=== PATIENT | female | born 1975 | race Caucasian/White ===

== ENCOUNTER → 2017-01-05 | Outpatient (CLI) | payer BC ==
[~2017-01-05] MED LIST: FERR325T51 PO; OMEG10007 PO
--- NOTE | 2017-01-05 12:58 | DIAGNOSTIC IMAGING REPORT ---
PELVIC ULTRASOUND CLINICAL HISTORY: Lower abdominal pain. COMPARISON STUDY: CT of the abdomen and pelvis September 18, 2014. TECHNIQUE: Transabdominal and transvaginal sonography of the pelvis was performed. FINDINGS: The uterus measures 8.3 x 5.4 x 6.8 cm. The endometrium measures 1.2 cm in thickness. Within the left aspect of the uterine fundus, there is a 2.4 x 1.9 x 2.3 cm hypoechoic lesion suggestive of a fibroid. The right ovary measures 3.2 x 4.4 x 3.3 cm and contains a 3.4 x 2.6 x 2.8 cm hypoechoic lesion with low level internal echoes. The left ovary measures 2.5 x 1.8 x 2.6 cm and contains several follicles. There is color flow within each ovary. IMPRESSION: 1. 2.4 cm left fundal mural fibroid. 2. 3.4 cm hypoechoic right ovarian lesion which could reflect a complex cyst such a hemorrhagic cyst. An endometrioma could appear similar. A follow-up pelvic ultrasound in 6 weeks is recommended. 3. No sonographic evidence of ovarian torsion. Electronically signed by: Nakul Lopez M.D. 01/05/2017 12:56 PM Dictated Date/Time: 01/05/2017 12:53 PM
== END | disposition home or self-care (01) ==
LOC: C.ULTR 12:00
PROVIDERS: ATTEND Student in an Organized Health Care Education/Training Program
DX: R10.30 Lower abdominal pain, unspecified (principal); D25.9 Leiomyoma of uterus, unspecified; N83.9 Noninflammatory disorder of ovary, fallopian tube and broad ligament, unspecified

== ENCOUNTER → 2017-02-22 | Outpatient (CLI) | payer BC ==
--- NOTE | 2017-02-22 12:00 | DIAGNOSTIC IMAGING REPORT ---
EXAMINATION: PELVIC ULTRASOUND CLINICAL HISTORY: OVARIAN CYST COMPARISON STUDY: 01/05/2017 FINDINGS: The uterus measured 8.7 cm. 2.3 cm uterine fibroid unchanged.. The endometrial stripe measured 9 mm unchanged. The right ovary measured 4.8 cm maximum dimension including a 4 x 3 cm complex right ovarian cyst versus endometrioma.. The left ovary measured maximum dimension 3.0 cm. Normal vascular flow. There is no ultrasonographic evidence of ovarian torsion. It should be noted that ovarian torsion can be present with normal Doppler ultrasonographic findings. There was no evidence of pathologic free pelvic fluid. IMPRESSION: 1. 4 x 3 cm progressively complex right ovarian cyst, hemorrhagic cyst, versus endometrioma. 2. Unchanging uterine fibroid. Electronically signed by: Scott Buchanan M.D. 02/22/2017 11:59 AM Dictated Date/Time: 02/22/2017 11:46 AM
== END | disposition home or self-care (01) ==
LOC: C.ULTR 10:51
PROVIDERS: ATTEND Family Medicine
DX: N83.209 Unspecified ovarian cyst, unspecified side (principal)